=== PATIENT | male | born 1945 | race Caucasian/White ===

== ENCOUNTER 2017-04-30 10:51 | Outpatient (CLI) | payer MEDICARE, OTHER ==
[~2017-04-30] VITALS: Ht 185.4 cm; Wt 113.4 kg
[~2017-04-30 10:51] MED LIST: ASPIRIN 81M81 MG/TA2 PO; CELEBREX 200MG200 MG PO; FISH OIL 1000MG1 CAP PO; FISH OIL 500 M1 EAC1 PO; INFANTS AQU400 IU/ML PO; NEXIUM 40MG40 MG PO; SYNTHROID 0.0.025 MG PO; SYNTHROID0.05 MG/TA PO; VITAMIN D1000 IU PO; ZYLOPRIM 100MG100 MG PO
[2017-04-30 11:36] LABS: CALCIUM 10.4 mg/dL (8.4-10.2); CREATININE, serum 1.28 mg/dL (0.66-1.25); POTASSIUM 4.3 mmol/L (3.4-5.0)
[2017-04-30 11:37] LABS: INR 1.1 (0.8-3.0); PROTHROMBIN TIME 12.2 SECONDS (9.7-12.8)
[2017-04-30 11:44] LABS: HEMATOCRIT 40.4 % (42.0-52.0); MEAN CELL VOLUME 93 fl (80.0-100.0); MEAN CORPUSCULAR HEMOGLOBIN 32 pg (27.0-31.0); MEAN CORPUSCULAR HGB CONC 35 g/dl (33.0-37.0); MEAN PLATELET VOLUME 10.1 fl (7.4-10.4); PLATELET COUNT 115 K/mm3 (130-400); RED BLOOD COUNT 4.36 M/mm3 (4.20-5.60); REDCELL DISTRIBUTION WIDTH-CV 13.2 % (11.5-14.5)
[2017-04-30] MEDS ORDERED: PRILOSEC 20MG20 MG PO (12:01)
[2017-04-30] MEDS ORDERED: FLOMAX 0.40.4 MG/CAP PO (12:04)
[2017-04-30] MEDS ORDERED: B-121000 MCG PO (12:04)
[2017-04-30 12:07] LABS: THYROID STIMULATING HORMONE 4.01 uIU/mL (0.465-4.680)
[2017-04-30] MEDS ORDERED: FLONASE NASAL S16 GM NS (12:08)
[2017-04-30 12:54] VITALS: BP 147/87; PULSE 61; TEMP 98.2
[2017-04-30 13:45] VITALS: BP 129/72; PULSE 61
[2017-04-30 14:00] VITALS: BP 133/77; PULSE 62
[2017-04-30 14:15] VITALS: BP 141/83; PULSE 61
[2017-04-30 14:30] VITALS: BP 142/90; PULSE 53
== END 2017-04-30 15:10 | disposition home or self-care (01) ==
LOC: COL.RAD 10:51
PROVIDERS: Internal Medicine Interventional Cardiology
DX: I34.0 Nonrheumatic mitral (valve) insufficiency (principal)
CPT/HCPCS: G9654; J2250; J3010